=== PATIENT | female | born 1945 | race Caucasian/White ===

== ENCOUNTER 2020-01-06 21:02 | Inpatient (IN) | payer MEDICARE, BC ==
[~2020-01-06] VITALS: Ht 170.2 cm; Wt 52.2 kg
--- NOTE | 2020-01-06 21:20 | NUR ---
Patient BIB pvt ambulance from [facility] for med cl to GPS. Patient calm, cooperative. A/Ox4. Speech is clear, speaks in complete sentences. No acute neuro deficits noted. Respiratory even and unlabored, no cough no sob. No cardiovascular distress denies cp,, palpitations; all pulses palpable. Denies any n/v/d, but reports being diagnosed with a UTI from previous hospital. Patient in bed at lowest position, patient in a gown, and belongings removed from the room and is out of reach from patient.
[2020-01-06] MEDS ORDERED: NITROFURANTOIN/NITROFURAN MAC 100 MG CAPSULE PO ONE (21:30)
[2020-01-06 21:41] LABS: BASOPHILS # (AUTO) 0.1 K/uL (0.0-8.0); BASOPHILS % (AUTO) 0.7 % (0.0-2.0); EOSINOPHILS % (AUTO) 0.6 % (0.0-7.0); HEMATOCRIT 32.6 % (31.2-41.9); HEMOGLOBIN 10.9 g/dL (10.9-14.3); LYMPHOCYTES # (AUTO) 2.4 K/uL (20.0-40.0); MEAN CORPUSCULAR HEMOGLOBIN 29.6 uug (24.7-32.8); MEAN CORPUSCULAR HGB CONC 34 g/dL (32.3-35.6); MEAN CORPUSCULAR VOLUME 88.2 fL (75.5-95.3); MONOCYTES # (AUTO) 1.2 K/uL (2.0-10.0); MONOCYTES % (AUTO) 16.5 % (0.0-11.0); NEUTROPHILS # (AUTO) 3.6 K/uL (1.8-8.9); NEUTROPHILS % (AUTO) 49.2 % (38.5-71.5); PLATELET COUNT (AUTO) 277 K/uL (179-408); WHITE BLOOD COUNT (AUTO) 7.3 K/uL (3.8-11.8)
[2020-01-06 21:50] LABS: CREATININE 1.1 mg/dL (0.6-1.3); POTASSIUM 3.8 mmol/L (3.5-5.1)
--- NOTE | 2020-01-06 21:53 | NUR ---
Food and beverages offered to patient.
[2020-01-06] MEDS ORDERED: NITROFURANTOIN/NITROFURAN MAC 100 MG CAPSULE ONE (22:02)
[2020-01-06 22:03] LABS: BILIRUBIN,DIRECT 0.2 mg/dL (0.0-0.2); BILIRUBIN,TOTAL 0.4 mg/dL (0.2-1.0)
[2020-01-06 22:04] LABS: TOTAL PROTEIN, SERUM 6.1 g/dL (6.4-8.2)
--- NOTE | 2020-01-06 22:22 | NUR ---
Trina Kee NP paged, awaiting call back.
[2020-01-06 22:24] LABS: EOSINOPHILS % (MANUAL) 1 % (0-8); LYMPHOCYTES % (MANUAL) 35 % (20-40); MONOCYTES % (MANUAL) 14 % (2-10); NEUTROPHILS % (MANUAL) 50 % (42-75)
[2020-01-06] MEDS ORDERED: IV NORMAL SALINE 1000 ML BAG IV ONE (22:30)
--- NOTE | 2020-01-06 22:50 | NUR ---
Report given to YOJANA Holland. Patient to finish fluids then willl be transported to MHU.
--- NOTE | 2020-01-06 23:30 | NUR ---
Patient transported to MHU in stable condition.
[2020-01-06 23:45] VITALS: BP 157/67
[2020-01-07] MEDS ORDERED: MAG HYDROX/AL HYDROX/SIMETH 30 ML LIQUID UDC PO PRN (00:15)
[2020-01-07] MEDS ORDERED: MAGNESIUM HYDROXIDE 30 ML LIQUID UDC PO PRN (00:15)
[2020-01-07] MEDS ORDERED: TEMAZEPAM 7.5 MG CAPSULE PO PRN (00:15)
[2020-01-07] MEDS ORDERED: ACETAMINOPHEN 325 MG TABLET PO PRN (00:15)
--- NOTE | 2020-01-07 06:51 | NUR ---
GPS/NSG Admit Note 74 y.o. female admitted to MHU from ER via [facility] on a 5150 for DTS under the care of Dr Kauffman and Vidhya MULTIPLE CUT OFF SAW OPERATOR. Pt arrived with ER staff. According to the Hold, Pt was brought to the ER from due to depression and suicidal ideation by overdosing on pills. Pt is alert, oriented, to person, time and situation. 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 Pt has verbalized suicidal thoughts and wanting to kill herself due to lack of support from her five siblings, is aware that the current Covid 19 pandemic is the reason for her emotional isolation. 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 Denies suicidal ideation or intent at time of admission. Upon face to face assessment patient appeared cooperative, and pleasant. Patient did request to sleep and expressed she had an exhausting long day. Plan of care initiated and safety precautions in place. Will provide a safe environment as well as a therapeutic milieu.
[2020-01-07 07:11] LABS: BASOPHILS # (AUTO) 0.1 K/uL (0.0-8.0); EOSINOPHILS # (AUTO) 0.2 K/uL (0.0-0.7); EOSINOPHILS % (AUTO) 2.4 % (0.0-7.0); HEMOGLOBIN 10.9 g/dL (10.9-14.3); LYMPHOCYTES # (AUTO) 2.3 K/uL (20.0-40.0); LYMPHOCYTES % (AUTO) 30.7 % (20.5-51.5); MEAN CORPUSCULAR HEMOGLOBIN 30.2 uug (24.7-32.8); MEAN CORPUSCULAR HGB CONC 34 g/dL (32.3-35.6); MONOCYTES # (AUTO) 1.2 K/uL (2.0-10.0); MONOCYTES % (AUTO) 16.2 % (0.0-11.0); NEUTROPHILS # (AUTO) 3.7 K/uL (1.8-8.9); NEUTROPHILS % (AUTO) 49.7 % (38.5-71.5); PLATELET COUNT (AUTO) 264 K/uL (179-408); WHITE BLOOD COUNT (AUTO) 7.5 K/uL (3.8-11.8)
[2020-01-07 07:15] LABS: CREATININE 1.1 mg/dL (0.6-1.3); POTASSIUM 3.5 mmol/L (3.5-5.1)
[2020-01-07 07:18] LABS: MAGNESIUM 1.6 mg/dL (1.8-2.4); PHOSPHOROUS 2.4 mg/dL (2.5-4.9)
[2020-01-07 07:30] VITALS: BP 163/77
[2020-01-07 07:32] LABS: THYROID STIMULATING HORMONE 0.385 mIU/mL (0.358-3.740)
[2020-01-07 09:17] LABS: EOSINOPHILS % (MANUAL) 2 % (0-8); LYMPHOCYTES % (MANUAL) 29 % (20-40); MONOCYTES % (MANUAL) 14 % (2-10); NEUTROPHILS % (MANUAL) 55 % (42-75)
[2020-01-07] MEDS: ESCITALOPRAM OXALATE 10 MG TABLET PO SCH (09:51)
[2020-01-07] MEDS ORDERED: MAGNESIUM OXIDE 400 MG TABLET PO ONE (15:00)
[2020-01-07] MEDS ORDERED: NEUTRA PHOS PACKET PO ONE (15:15)
[2020-01-07 16:00] VITALS: BP 109/73
[2020-01-07 20:35] VITALS: BP 152/72
[2020-01-08] MEDS: ESCITALOPRAM OXALATE 10 MG TABLET PO SCH (08:11)
[2020-01-08 08:27] LABS: BILIRUBIN,TOTAL 0.4 mg/dL (0.2-1.0); CREATININE 0.8 mg/dL (0.6-1.3); POTASSIUM 3.4 mmol/L (3.5-5.1); TOTAL PROTEIN, SERUM 5.9 g/dL (6.4-8.2)
[2020-01-08 08:30] VITALS: BP 151/78
[2020-01-08] MEDS ORDERED: POTASSIUM CHLORIDE 20 MEQ TAB.PRT.SR PO ONE (11:30)
--- NOTE | 2020-01-08 12:05 | NUR ---
Received Patient in dark room this am, awake and eating breakfast. Patient stated " I have not slept in 2 days because of this roommate I have ,wont stop talking !".Patient appears depressed and slightly confused about medications she has taken since being here. When in bed, patient chooses to be incontinent. Patient denies SI so far this am. Appetite noted good, medication compliant. Encouraged to get out of bed and room some time today. Paintings Conservator will attempt to obtain a urine specimen. Patient able to engage in meaningful conversation, but only willing to do so for short periods of time. Continuing to monitor for safety, SI and any notable increases in depression.
[2020-01-08] MEDS: LORAZEPAM 0.5 MG TABLET PO PRN ×2 (14:46→20:27)
[2020-01-08 15:25] VITALS: BP 161/75
[2020-01-08 17:29] LABS: *CREATININE,URINE 45.9 mg/dL (30-125)
[2020-01-08 17:37] LABS: *BILIRUBIN,URIN NEGATIVE (NEGATIVE); *CLARITY,URINE SLIGHTLY CLOUDY (CLEAR); *COLOR,URINE YELLOW (YELLOW); *KETONES,URINE NEGATIVE (NEGATIVE); *UROBILINOGEN,URINE 0.2 E.U./dl (NORMAL); LEUKOCYTE ESTERASE ,URINE 3+ (NEGATIVE); NITRITE, URINE NEGATIVE (NEGATIVE); PH,URINE 7.5 (5.0-8.0); UGLUCOSE NEGATIVE (NEGATIVE)
[2020-01-08 18:02] LABS: *BLOOD, URINE TRACE (NEGATIVE)
[2020-01-08 18:04] LABS: SQUAMOUS EPITHELIAL CELL,UR MODERATE /HPF (NONE SEEN); WBC,URINE 80-100 /HPF (0-3)
[2020-01-08 20:13] VITALS: BP 157/61
[2020-01-08] MEDS ORDERED: CEphaleXIN 250 MG CAPSULE ONE ×2 (20:24→20:32)
[2020-01-08] MEDS: CEphaleXIN 250 MG CAPSULE PO SCH ×2 (20:27→22:39)
[2020-01-09] MEDS: CEphaleXIN 250 MG CAPSULE PO SCH ×3 (06:13→22:00)
[2020-01-09 07:30] VITALS: BP 177/84
--- NOTE | 2020-01-09 08:00 | NUR ---
GPS: RECEIVED PATIENT AOX3, PATIENT ASLEEP, WOKE UP ATE HER BREAKFAST, ASSISTED WITH ADL, PATIENT VERBALIZES SHES HAVING TROUBLE SLEEP LAST NIGHT REGARDING HER ROOMMATE, PATIENT DENIES SI AND HI , SEEN BY PHYSICAL THERAPIST FOR HER THERAPY AND AMBULATES WITH FWW AND WHEELCHAIR, WILL CONTINUE MONITOR
[2020-01-09] MEDS: ESCITALOPRAM OXALATE 10 MG TABLET PO SCH (08:22)
--- NOTE | 2020-01-09 13:49 | NUR ---
patient calm and cooperative stays in her room most oft the time , no distress at this time
[2020-01-09 16:00] VITALS: BP 152/72
--- NOTE | 2020-01-09 16:28 | NUR ---
KRISTA Initial Discharge Note: Patient will be discharged back home [address] [place] [address] ([phone]). Patient has full fashioned garment knitter caregivers at home which will continue to provide care for her upon arrival. Patient was receiving home health services from [facility]. KRISTA will continue to work with patient and MD to ensure a safe and proper discharge plan.
[2020-01-09] MEDS: LORAZEPAM 0.5 MG TABLET PO PRN (18:50)
[2020-01-09 20:51] VITALS: BP 168/76
[2020-01-09] MEDS ORDERED: ARIPIPRAZOLE 5 MG TABLET PO SCH (21:00)
--- NOTE | 2020-01-09 21:00 | NUR ---
received to care, lying in bed, pleasant upon approach. denies SI at this time, but admits to being depressed. compliant with unit rules, and staff direction. as of 2099, she appears to be asleep. no distress noted. will continue to monitor closely.
[2020-01-10] MEDS: CEphaleXIN 250 MG CAPSULE PO SCH ×3 (05:50→21:09)
--- NOTE | 2020-01-10 06:00 | NUR ---
slept 7.0 hours, total. continues to sleep. no distress noted.
[2020-01-10 08:19] VITALS: BP 148/68
[2020-01-10] MEDS: ESCITALOPRAM OXALATE 10 MG TABLET PO SCH (08:23)
--- NOTE | 2020-01-10 14:48 | NUR ---
Social Work Note Individual Therapy: food counter worker met with patient for brief counseling. food counter worker assessed for patients level of suicidality. Patient denies SI. 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 She stated she has social support and that is going to see her therapist upon discharge. She stated that she also has caregivers at home who are capable of taking care of her needs. This telegraphic typewriter mechanic provided mental health referrals to patient such as [facility] ( ), [place] [facility] ( ) , [facility] Substance Abuse Helpl[facility] ( ). food counter worker encouraged patient to contact either family, hotline, or a professional if patient were to have suicidal thoughts. This telegraphic typewriter mechanic also encouraged patient to alert either this telegraphic typewriter mechanic or the nursing staff.
[2020-01-10 16:00] VITALS: BP 148/62
--- NOTE | 2020-01-10 18:29 | NUR ---
PATIENT REMAIN CALM , DENIES SI AND HI, COMPLIANT WITH MEDS, NO DISTRESS
[2020-01-10 20:00] VITALS: BP 167/69
--- NOTE | 2020-01-10 22:00 | NUR ---
received to care, initially up in w/c in [facility], pleasant upon approach. denies SI at this time, but admits to being depressed. compliant with medications, and staff direction. kevin at bedside, for safety. as of 2199, she appears to be asleep. no distress noted. will continue to monitor closely.
--- NOTE | 2020-01-11 05:54 | NUR ---
slept 8.0 hours, total. continues to sleep. no distress noted.
[2020-01-11] MEDS: CEphaleXIN 250 MG CAPSULE PO SCH ×3 (06:20→20:32)
[2020-01-11 07:30] VITALS: BP 164/78
--- NOTE | 2020-01-11 08:00 | NUR ---
GPS: received patient in bed, calm cooperative, patient denies Si and HI, compliant with medication in no distress at this time, wll continue monitor
[2020-01-11 08:26] LABS: BASOPHILS # (AUTO) 0.1 K/uL (0.0-8.0); BASOPHILS % (AUTO) 1.4 % (0.0-2.0); EOSINOPHILS # (AUTO) 0.1 K/uL (0.0-0.7); EOSINOPHILS % (AUTO) 1.9 % (0.0-7.0); HEMATOCRIT 31.6 % (31.2-41.9); HEMOGLOBIN 10.8 g/dL (10.9-14.3); MEAN CORPUSCULAR HEMOGLOBIN 30.5 uug (24.7-32.8); MEAN CORPUSCULAR HGB CONC 34 g/dL (32.3-35.6); MEAN CORPUSCULAR VOLUME 89.5 fL (75.5-95.3); MONOCYTES # (AUTO) 1.1 K/uL (2.0-10.0); MONOCYTES % (AUTO) 16.5 % (0.0-11.0); NEUTROPHILS # (AUTO) 3.4 K/uL (1.8-8.9); NEUTROPHILS % (AUTO) 50.2 % (38.5-71.5); PLATELET COUNT (AUTO) 260 K/uL (179-408); RED BLOOD CELL COUNT(AUTO) 3.53 MIL/uL (3.63-4.92); WHITE BLOOD COUNT (AUTO) 6.7 K/uL (3.8-11.8)
[2020-01-11] MEDS: ESCITALOPRAM OXALATE 10 MG TABLET PO SCH (08:27)
[2020-01-11 08:32] LABS: CREATININE 0.7 mg/dL (0.6-1.3); POTASSIUM 3.8 mmol/L (3.5-5.1)
[2020-01-11 09:12] LABS: EOSINOPHILS % (MANUAL) 3 % (0-8); LYMPHOCYTES % (MANUAL) 26 % (20-40); MONOCYTES % (MANUAL) 14 % (2-10); NEUTROPHILS % (MANUAL) 57 % (42-75)
--- NOTE | 2020-01-11 10:14 | NUR ---
Social Work Family Contact: spring floor service worker spoke with patient's sister Tena ([phone]) who stated that is the DPOA but has not sent the documents. Per Codie, she states that she is agreeable for patient to return back home with proper resources. This technical report writer informed that when patient returns back home she will set up home health services, caregiving services that patient receives, and outpatient follow-ups with doctors. Per Codie, she stated that patient has had multiple admissions and that she has not been cooperative and that she has been refusing the care. Per Codie, she shared that she "will no longer take care of it because it has been overwhelming for her". This technical report writer also spoke with patient's other sister Francine ([phone]), ([phone]) who stated that she is the DPOA for finances and reported that she also feels overwhelmed with taking care of her sister and does not "have time anymore". This technical report writer encouraged both sisters to be more involved in patient's care. This technical report writer will make an APS report for DPOA neglecting patient's care and responsibilities.
--- NOTE | 2020-01-11 10:24 | NUR ---
Social Work Coordination of Care: crop or grain farmworker faxed [facility] psychiatric notes and medication list and laboratory results to [facility] admin Saba ([phone]) and to [facility] admin Kerry ([phone]) to review.
--- NOTE | 2020-01-11 11:21 | NUR ---
Social Work APS Report: This sports writer filed for an APS report (DOROTHEA Hendrix) towards patient's sister Francine and Codie who are DPOA for patient and are neglecting care (Intake ID [id number]).
--- NOTE | 2020-01-11 11:56 | NUR ---
Social Work Coordination of Care: Mitesh Walter from [facility] ([phone]) stated that patient is accepted.
--- NOTE | 2020-01-11 13:07 | NUR ---
Social Work Note: This magnetic tape typewriter operator spoke with patient in regard to her discharge plan. This magnetic tape typewriter operator explained that she will transition to a care home called [facility]. Patient agreed.
--- NOTE | 2020-01-11 13:07 | NUR ---
Social Work Family Contact: forge utility worker spoke with patient's sister Codie ([phone]) who claimed that she is the DPOA. Codie sent this process description writer the documents and Codie was the [employer] Directive, however, this was at 2014. Addendum: 01/11/20 at 1309 by KRISTA ALLEN This process description writer placed the documents in patient's chart.
--- NOTE | 2020-01-11 15:31 | NUR ---
Social Work Individual Therapy: weld lay out worker met with patient for brief counseling. weld lay out worker assessed for patients level of suicidality. Patient denies SI. Patient presented to be somewhat depressed. She shared that after her knee amputated she is unable to play sports or do regular activities. Patient has been always independent and she is having difficulties for asking for help. This tag writer actively listened and provided emotional support.
[2020-01-11 16:02] VITALS: BP 126/63
[2020-01-11 19:59] VITALS: BP 156/65
--- NOTE | 2020-01-11 20:35 | NUR ---
Received patient in bed, calm and cooperative, interacts with peers, med compliant, no behavioral issue will remain in a psych facility for further evaluation and treatment.
[2020-01-12] MEDS: CEphaleXIN 250 MG CAPSULE PO SCH ×3 (06:01→21:04)
[2020-01-12 07:30] VITALS: BP 165/75
[2020-01-12] MEDS: ESCITALOPRAM OXALATE 10 MG TABLET PO SCH (08:35)
[2020-01-12 16:00] VITALS: BP 109/79
--- NOTE | 2020-01-12 17:56 | NUR ---
Left patient in room AAOx4. vitals stable, no c/of pain. Pt. compliant with medications schedule, and cooperative. No behavioral issues noted during shift. Will endorse to incoming shift for continuity of care.
[2020-01-12 20:00] VITALS: BP 140/64
--- NOTE | 2020-01-13 03:34 | NUR ---
Patient received sitting in the wheelchair in the dinning room. AAO x3. pleasant upon approach. No acute distress and SOB was noted. No complain of pain. No behavioral issues. Denies SI. Calm and cooperative and compliant with medications. Safety measure maintained. Continue to monitor and will endorse to the oncoming nurse.
[2020-01-13] MEDS: CEphaleXIN 250 MG CAPSULE PO SCH ×3 (06:24→21:03)
[2020-01-13 07:30] VITALS: BP 171/64
[2020-01-13] MEDS: ESCITALOPRAM OXALATE 10 MG TABLET PO SCH (09:06)
--- NOTE | 2020-01-13 15:33 | NUR ---
Social Work Individual Therapy: terrazzo worker helper met with patient for brief counseling. terrazzo worker helper assessed for patients level of suicidality. Patient denies SI. Patient presented to be tearful. She shared that due to her knee being amputated she is unable to have her own independent and that she requires assistance with her ADLs. Patient reports that she feels embarrassed with the staff needs to take her to the restroom. Patient reported that it has been a change in her life but she is working on accepting it. This typewriter assembly and parts inspector actively listened and provided emotional support.
[2020-01-13 15:39] VITALS: BP 130/57
[2020-01-13 20:00] VITALS: BP 142/60
[2020-01-14] MEDS: CEphaleXIN 250 MG CAPSULE PO SCH ×3 (06:48→21:02)
[2020-01-14 07:30] VITALS: BP 146/67
[2020-01-14] MEDS: ESCITALOPRAM OXALATE 10 MG TABLET PO SCH (08:24)
[2020-01-14 16:00] VITALS: BP 159/65
--- NOTE | 2020-01-14 17:34 | NUR ---
patient cooperative with meds, denied any suicidal thoughts, no distress noted, patient doing well. sitting in dinning room, having dinner.
--- NOTE | 2020-01-14 19:48 | NUR ---
report given to night nurse RN
[2020-01-14 21:16] VITALS: BP 142/62
[2020-01-15] MEDS: CEphaleXIN 250 MG CAPSULE PO SCH ×2 (06:20→14:53)
[2020-01-15 07:30] VITALS: BP 160/69
[2020-01-15] MEDS: ESCITALOPRAM OXALATE 10 MG TABLET PO SCH (08:53)
--- NOTE | 2020-01-15 10:06 | NUR ---
GPS: PT RECEIVED ASLEEP, AROSE TO NAME. DENIED SI OR INTENT OT HARM SELF. PT A/O X3, UNDERSTAND AND COMPREHEND WELL BUT A BIT GUARDED OTHERS. PT MONITOR PER AMPUTATION AND ABILITY OF TRANSFERRING, PT ABLE WITH ASSEMBLY LINE SUPERVISOR. COOPERATIVE WITH MEDS AND CARE. PT PROVIDED WITH SAFE AND THERAPEUTIC ENVIRONMENT. WILL CONTINUE TO MONITOR AND ASSESS.
[2020-01-15 16:00] VITALS: BP 142/56
[2020-01-15 20:00] VITALS: BP 117/57
--- NOTE | 2020-01-15 21:27 | NUR ---
Received pt in the activity room watching tv. AAO x3-4. No acute distress noted. Denies pain/ discomfort. Denies SI. Appears to be pleasant and communicate with staff well. Pt needs help to transfer due to amputation. Cooperative with plan of care. Safety measures maintained. Will continue to monitor.
[2020-01-16 07:30] VITALS: BP 174/64
[2020-01-16] MEDS: ESCITALOPRAM OXALATE 10 MG TABLET PO SCH (08:25)
--- NOTE | 2020-01-16 15:11 | NUR ---
Social Work Family Contact: aboriginal education worker coordinator discussed with sister Codie ([phone]) and discussed patient's discharge plan.
[2020-01-16 15:36] VITALS: BP 117/63
--- NOTE | 2020-01-16 18:17 | NUR ---
Received patient this am in bed, eyes open wide. Patient verbalized " I did not get a wink of sleep last night because my roommate kept me up" This patient then got in her wheelchair and came to the nurses station saying " My doctor promised me I would be going home today ". Patient angry and irritable. Offered patient a PRN but she refused it. Most of the day patient appeared to be complaining about everything. Patient has difficulty verbalizing follow up care or how to manage depression on the out side. Metal Sprayer Protective Coating was an active listener, provided positive conversation with reassurance. Educated patient on coping skills. Patient verbalized understanding, but remains frustrated. No acute behavioral issues and patient denies SI at this time.
[2020-01-16 20:00] VITALS: BP 132/88
--- NOTE | 2020-01-16 22:54 | NUR ---
received patient in wheelchair in the lounge watching TV upon initial rounds. AAOx3. VSS. Needs attended. No acute distress noted. Denies any pain nor any discomfort. Patient pleasant and cooperative. Left BKA dressing clean dry and intact. Will monitor patient. Fall precautions maintained.
--- NOTE | 2020-01-17 05:52 | NUR ---
aaox3 slert well. no acute distress noted. Denies any pain nor any discomfort. will monitor for any agitation or restlessness. quiet night. calm and cooperative. 2
[2020-01-17 07:30] VITALS: BP 156/66
[2020-01-17] MEDS: ESCITALOPRAM OXALATE 10 MG TABLET PO SCH (08:36)
--- NOTE | 2020-01-17 13:32 | NUR ---
Social Work Firearms Report: Lieutenant General completed and submitted a [employer] firearms report for 5250 grave disability certification. A copy of report has been placed in patient chart.
--- NOTE | 2020-01-17 14:27 | NUR ---
Social Work Individual Therapy: utility worker met with patient for brief counseling. utility worker assessed for patient's level of suicidality. Patient denies SI. Patient presented with euthymic mood. Patient reports that the hospital has been helpful and that the treatment she has received here has been beneficial. Patient reports that she has goals and steps that she has arranged and is ready to leave so she can plan for her future. This newspaper writer actively listened, provided education, and emotional support.
[2020-01-17 16:56] VITALS: BP 119/62
--- NOTE | 2020-01-17 17:13 | NUR ---
Received patient this am . Awake and Alert. Ready to be discharged in the am. No behavioral issues, medication compliant. Denies SI and feeling depressed at this time. Continuing to monitor for safety.
--- NOTE | 2020-01-17 19:45 | NUR ---
PATIENT ALERT ORIENTED, NO COMPLAIN OF PAIN. PATIENT COOPERATIVE WITH CARE, PLEASANT, AND HAPPY TO GO HOME TOMORROW, CONT TO MONITOR.
[2020-01-17 20:13] VITALS: BP 134/62
--- NOTE | 2020-01-18 05:51 | NUR ---
PATIENT SLEPT MOST OF THE NIGHT, NO BEHAVIORAL PROBLEM AT THIS TIME, NO COMPLAIN OF PAIN, CONT TO MONITOR.
[2020-01-18 07:30] VITALS: BP 167/73
--- NOTE | 2020-01-18 08:52 | NUR ---
Social Work Discharge Note: Patient will be discharged to longterm facility, [facility] [place] [address]; ([phone]) via Ambulance transportation at 11AM provided by [facility]. Ham Sawyer spoke with Saba Trade Facilitator at [facility]; ([phone]) who stated patient will be accepted back at facility today. Per patients sister Codie, ([phone]) has been made aware and agreeable with discharge plans. Patient is alert and oriented x2-3 and is unable to plan for self-care. Patient denies any suicidal or homicidal ideation. Patient is aware and agreeable with discharge plans. Patient will continue to follow-up with Psychiatrist Dr. Logan and Legal Director Dr. Arzola at [facility] [place] [address]; ([phone]). Patient presents with euthymic mood and congruent affect.
[2020-01-18] MEDS: ESCITALOPRAM OXALATE 10 MG TABLET PO SCH (09:03)
[2020-01-18 10:48] VITALS: BP 139/66
--- NOTE | 2020-01-18 11:56 | NUR ---
Pt is being discharge to [facility] by transportation provided by the facility. Pt is aware and willing to go. VS are stable. Report was called to YOJANA Montelongo. Pt is calm, cooperative, A/O x 3. All paperwork was signed, belongings returned.
== END 2020-01-18 12:05 | DRG 885 ==
LOC: ER 21:12 → GPS 23:24
PROVIDERS: ADMIT Psychiatry & Neurology Psychiatry; ATTEND Nurse Practitioner Acute Care
DX: F33.2 Major depressive disorder, recurrent severe without psychotic features (principal); E87.1 Hypo-osmolality and hyponatremia; Z68.1 Body mass index [BMI] 19.9 or less, adult; R45.851 Suicidal ideations; F23 Brief psychotic disorder; E44.0 Moderate protein-calorie malnutrition; E83.42 Hypomagnesemia; N30.90 Cystitis, unspecified without hematuria; E83.39 Other disorders of phosphorus metabolism; E87.6 Hypokalemia; Z89.512 Acquired absence of left leg below knee; E86.1 Hypovolemia; I73.9 Peripheral vascular disease, unspecified
CPT/HCPCS: 36415; 70030-TC; 83735; 84100; 84156; 84300; 84443; 85025; 87086; 93005; A4663; U0003-CS